=== PATIENT | male | born 1995 | race Caucasian/White ===

== ENCOUNTER 2023-08-17 04:52 | Emergency (ER) | payer OTHER, SELFPAY ==
--- NOTE | 2023-08-17 05:04 | DI.RAD.S_ITS ---
PROCEDURE: XR CHEST 1V INDICATIONS: L CHEST PAIN TECHNIQUE: One view of the chest was acquired. COMPARISON: None. FINDINGS: Surgical changes and devices: None. Lungs and pleura: Lung volumes are slightly low, but lungs are clear. No pleural effusions or pneumothorax. Mediastinum: Mediastinal contours appear normal. Heart size is normal. Bones and chest wall: No suspicious bony lesions. Overlying soft tissues appear unremarkable. IMPRESSION: No acute cardiopulmonary process. I agree with the preliminary report. Dictated by: Yola Olivas M.D. on 08/17/2023 at 8:41 Approved by: Yola Olivas M.D. on 08/17/2023 at 8:41
[2023-08-17 05:06] VITALS: BP 159/86; PULSE 84; RESP 16; TEMP 36.9; O2SAT 98; BMI 48.6
[2023-08-17 05:08] VITALS: PULSE 84; O2SAT 95
--- NOTE | 2023-08-17 05:11 | ED.CHESTPAIN ---
HPI - Chest Pain General Chief Complaint: Chest Pain Stated Complaint: chest pain arm pain left arm and fingers numb Time Seen by Provider: 08/17/23 04:53 Source: patient Mode of arrival: Ambulatory Limitations: no limitations History of Present Illness HPI narrative: 28-year-old male with history of hypertension presents by private vehicle from home for 3-4 days of left-sided, intermittent chest pain. Pain starts in his left arm and goes into his chest. Patient can not identify what makes the pain come or go. No medications taken at home prior to arrival. Patient states that he woke up this morning with chest and arm pain with tingling and numb sensation in his left ring and pinky fingers and decided to present for evaluation. Patient states that his dad has a history of heart problems, but is also an alcoholic and he does not have much contact with him. No other family members have heart disease. Patient denies history of diabetes or high cholesterol. States that he was home blood pressure monitor because [facility] told [facility] that he was on the ?upper limits of normal?, but is not currently on medications for blood pressure. Related Data Home Medications Medication Instructions Recorded Confirmed sertraline 100 mg tablet 100 mg PO DAILY 08/17/23 08/17/23 Review of Systems Review of Systems Narrative: See HPI Patient History Social History Smoking Status: Never smoker Smoking Status: Never smoker Substance Use Type: does not use Exam Initial Vital Signs Initial Vital Signs: Vital Signs Temperature 98.4 F 08/17/23 05:06 Pulse Rate 84 08/17/23 05:06 Respiratory Rate 16 08/17/23 05:06 Blood Pressure 159/86 H 08/17/23 05:06 Pulse Oximetry 98 08/17/23 05:06 Oxygen Delivery Method Room Air 08/17/23 05:06 Const: Awake, alert, no acute distress, nontoxic appearing Cardiac: regular rate, regular rhythm RESP: unlabored, clear bilaterally, no wheezing GI: Soft, nontender, nondistended, no rebound, no guarding MSK: Atraumatic, full range of motion, pulses equal Skin: Warm, Dry, intact, no rashes Neuro: AO x3, CN II-XII grossly intact, moves all extremities Course Orders Ordered: ED Orders 08/17/23 05:04 Chest [XR chest 1V] Stat EKG-12 Lead Stat 08/17/23 05:05 CBC Auto Diff [Complete Blood Count AUTO DIFF] Stat CMP [Comprehensive Metabolic Panel] Stat Troponin & CK Cardiac Panel Stat Vital Signs Vital signs: Vital Signs - 8 hr 08/17/23 05:06 08/17/23 05:08 08/17/23 05:30 Temperature 98.4 F Pulse Rate 84 84 Respiratory Rate 16 Blood Pressure 159/86 H 138/82 Pulse Oximetry 98 95 Oxygen Delivery Method Room Air 08/17/23 05:30 Temperature Pulse Rate 83 Respiratory Rate 15 Blood Pressure Pulse Oximetry 93 Oxygen Delivery Method MDM - Chest Pain Differential Diagnosis Differential diagnosis: Likely fracture of rib, pneumothorax and stable angina Lab Data 08/17/23 05:15 08/17/23 05:15 Labs: Lab Results 08/17/23 Range/Units 05:15 WBC 8.9 (4.5-11.0) X10^3/uL RBC 5.15 (4.5-5.9) X10^6/uL Hgb 14.6 (13.5-17.5) g/dL Hct 43.5 (41-53) % MCV 84.5 (80-100) fL MCH 28.4 (26-34) PG MCHC 33.6 (30-36) % RDW 13.7 (11.6-14.8) % Plt Count 284 (150-400) X10^3/uL Neut % (Auto) 48.8 L (50-75) % Lymph % (Auto) 41.7 H (25-40) % [place] % (Auto) 5.6 (3-14) % Eos % (Auto) 3.0 (2-4) % Baso % (Auto) 0.9 (0-2) % Neut # (Auto) 4400 (6545-2553) /uL Lymph # (Auto) 3700 (5549-2564) /uL [place] # (Auto) 500 (0-900) /uL Eos # (Auto) 300 (0-450) /uL Baso # (Auto) 100 (0-100) /uL Sodium 139 (137-145) mmol/L Potassium 4.1 (3.4-5.1) mmol/L Chloride 105 (98-107) mmol/L Carbon Dioxide 27 (22-32) mmol/L BUN 15 (9-20) mg/dL Creatinine 0.87 (0.66-1.25) mg/dL Estimated GFR > 60 (>60) mL/min BUN/Creatinine Ratio 17.2 (6-22) Glucose 121 H (70-100) mg/dL Calcium 9.3 (8.4-10.2) mg/dL Total Bilirubin 0.6 (0.2-1.3) mg/dL AST 31 (17-59) IU/L ALT 51 H (<50) IU/L Alkaline Phosphatase 72 (38-126) U/L Total Creatine Kinase 62 (55-170) U/L Troponin I < 0.012 (0.01-0.034) ng/mL Total Protein 7.8 (6.3-8.2) g/dL Albumin 4.7 (3.5-5.0) g/dL Globulin 3.1 (1.7-4.1) g/dL Albumin/Globulin Ratio 1.5 (1.0-2.8) ECG Data Interpretation: Normal sinus rhythm at 81 beats per minute. Normal ID, no ST T wave changes, no STEMI MDM Narrative Medical decision making narrative: Nontoxic patient presenting for chest pain. Heart score 1 based on risk factors of obesity and hypertension, however history and exam with low suspicion for ACS. Labs and x-ray imaging ordered. Laboratory work unremarkable. Troponin undetectable, chest x-ray shows no acute process. Patient reassessed, comfortable in ED bed. Informed of lab and imaging findings. Reassured by normal lab and x-ray imaging. Recommended close PCP follow up. Offered patient low-dose blood pressure medication such as amlodipine if he continues to notice blood pressure elevation at home. Patient declined, stating that he would [facility] if he noticed elevated blood pressures at home. ED return precautions discussed at bedside. Patient expressed understanding of the plan and is in agreement at this time. All questions answered at the time of discharge. Discharge Plan Departure Patient Disposition: Home Clinical Impression: Chest pain Instructions: DI for Chest Pain Activity Restrictions/Additional Instructions: Your blood work, EKG, and chest x-ray were reassuring. I do not know the exact cause of your chest pains but your workup is inconsistent with a heart attack. Please follow up with your primary care physician. If you continued to notice chest pains I would recommend talking to your primary about a referral to [facility] through the [facility]. Prescriptions: No Action sertraline 100 mg tablet 100 mg PO DAILY Stand Alone Forms: Patient Portal/API
--- NOTE | 2023-08-17 05:21 | PC.NURSE ---
Pt states that he has had recurrent symptoms over the last few days. No treatment and not seen by PCP in the past. Pt states today around 4 am woke up suddenly with left sided chest pain lasting about 10 minutes, then after felt some numbness and tingling in his left fingers. During exam today pt states that he is still having some tingling in his left fingers.
[2023-08-17 05:22] LABS: Add Manual Diff / Slide Review NO; Basophils Absolute Auto 100 /uL (0-100); Basophils Percent Auto 0.9 % (0-2); Eosinophils Absolute Auto 300 /uL (0-450); Hematocrit 43.5 % (41-53); Hemoglobin 14.6 g/dL (13.5-17.5); Lymphocytes Absolute Auto 3700 /uL (1100-4500); Lymphocytes Percent Auto 41.7 % (25-40); Mean Corpuscular HGB Conc 33.6 % (30-36); Mean Corpuscular Hemoglobin 28.4 PG (26-34); Mean Corpuscular Volume 84.5 fL (80-100); Monocytes Absolute Auto 500 /uL (0-900); Monocytes Percent Auto 5.6 % (3-14); Neutrophils Absolute Auto 4400 /uL (1500-7000); Neutrophils Percent Auto 48.8 % (50-75); Platelet Count 284 X10^3/uL (150-400); Red Blood Cell Count 5.15 X10^6/uL (4.5-5.9); Red Cell Distribution Width 13.7 % (11.6-14.8); White Blood Cell Count 8.9 X10^3/uL (4.5-11.0)
[2023-08-17 05:30] VITALS: BP 138/82; PULSE 83; RESP 15; O2SAT 93
[2023-08-17 05:41] LABS: Alanine Aminotransferase 51 IU/L (<50); Albumin 4.7 g/dL (3.5-5.0); Albumin Globulin Ratio 1.5 (1.0-2.8); Alkaline Phosphatase 72 U/L (38-126); Aspartate Aminotransferase 31 IU/L (17-59); BUN Creatinine Ratio 17.2 (6-22); Bilirubin Total 0.6 mg/dL (0.2-1.3); Blood Urea Nitrogen 15 mg/dL (9-20); Calcium 9.3 mg/dL (8.4-10.2); Carbon Dioxide 27 mmol/L (22-32); Chloride 105 mmol/L (98-107); Creatine Kinase 62 U/L (55-170); Estimated Glomerular Filt Rate > 60 mL/min (>60); Globulin 3.1 g/dL (1.7-4.1); Glucose 121 mg/dL (70-100); HEMOLYSIS < 15 (0-50); Potassium 4.1 mmol/L (3.4-5.1); Sodium 139 mmol/L (137-145); Total Protein 7.8 g/dL (6.3-8.2)
[2023-08-17 05:53] LABS: Troponin I < 0.012 ng/mL (0.01-0.034)
[2023-08-17 06:00] VITALS: BP 130/82; PULSE 75; RESP 17; O2SAT 95
[2023-08-17 06:33] VITALS: BP 130/82; PULSE 75; RESP 16; O2SAT 98
== END 2023-08-17 06:36 | disposition home or self-care (01) ==
PROVIDERS: Emergency Provider Emergency Medicine; Family Provider Pediatrics
DX: R07.9 Chest pain, unspecified (principal)
CPT/HCPCS: 71045; 80053; 82550; 84484; 85025; 93005; 99281; 99284

== ENCOUNTER 2024-08-14 15:15 | Emergency (ER) | payer OTHER, SELFPAY ==
[2024-08-14 15:18] VITALS: BP 157/87; PULSE 92; RESP 18; TEMP 36.4; O2SAT 97; BMI 44.8
--- NOTE | 2024-08-14 15:51 | DI.RAD.S_ITS ---
PROCEDURE: XR HAND RT MIN 3V INDICATIONS: increased pain TECHNIQUE: 3 views of the hand(s) acquired. COMPARISON: None. FINDINGS: Bones: No fractures or dislocations. Carpal bones are normally aligned. No suspicious bony lesions. Soft tissues: No suspicious soft tissue calcifications. IMPRESSION: No acute osseous abnormality. If pain persists with conservative management, consider repeat x-ray in 10-14 days or cross-sectional imaging. Dictated by: Zach Quintana M.D. on 08/14/2024 at 16:38 Approved by: Zach Quintana M.D. on 08/14/2024 at 16:39
--- NOTE | 2024-08-14 18:11 | ED.EXTPRO ---
HPI - Extremity Problem <Shantell Rust PA-C - Last Filed: 08/14/24 19:25> General Chief complaint: Extremity Problem,Nontraumatic Stated complaint: numbness in fingers, pain in knuckles rt hand Time Seen by Provider: 08/14/24 16:17 Source: patient Mode of arrival: Ambulatory History of Present Illness HPI Narrative: Mr. Martinez is a very pleasant 29-year-old male with a past medical history prediabetes who presents to the emergency department for right hand pain and numbness/tingling x3 days. Pt denies traumatic injury. He works at [employer] and is right-hand dominant, uses right hand majority of the day. Noticed the pain in the middle of his right hand and knuckles starting throughout the day about 3 days ago and now he is having some intermittent numbness/tingling in his 1st through 4th digits but primarily digits 2 3 and 4. At this time he is not experiencing any of the symptoms except for mild pressure-like pain in the middle of the right hand. Because Of his history of prediabetes, he is worried about neuropathy. He denies any numbness tingling of his feet, left hand, wrist sore arms. No neck pain. No fevers chills nausea vomiting or other symptoms. He did take 1 dose of Aleve earlier today without relief. Related Data Home Medications Medication Instructions Recorded Confirmed sertraline 100 mg tablet 100 mg PO DAILY 08/17/23 08/17/23 Allergies Allergy/AdvReac Type Severity Reaction Status Date / Time No Known Drug Allergies Allergy Verified 08/14/24 15:18 Review of Systems <Shantell Rust PA-C - Last Filed: 08/14/24 19:25> Review of Systems ROS Unobtainable: All systems reviewed & are unremarkable except as noted in HPI and below Patient History <Shantell Rust PA-C - Last Filed: 08/14/24 19:25> Social History Smoking Status: Never smoker Smoking Status: Never smoker Exam <Shantell Rust PA-C - Last Filed: 08/14/24 19:25> Narrative Exam Narrative: GENERAL: 29 year old patient appears stated age. Well-developed patient, in no acute distress. HEAD: Atraumatic. Normocephalic. NECK: Trachea midline. Cervical ROM intact. CARDIOVASCULAR: Regular rate and rhythm. RESPIRATORY: ?Nonlabored respirations. ?Speaking in clear, full sentences. ? EXTREMITIES: Strong radial pulses bilaterally, sensation and strength intact in the distribution of the median, ulnar, radial nerves bilaterally. Patient has no focal bony tenderness of the right hand, no skin changes swelling or deformities. Negative Phalen's and Tinel's tests bilaterally. NEURO: AOx3. ?Clear speech. ?Moves all 4 extremities appropriately. SKIN: No rash or erythema of visible areas Initial Vital Signs Initial Vital Signs: Vital Signs Temperature 97.6 F 08/14/24 15:18 Pulse Rate 92 H 08/14/24 15:18 Respiratory Rate 18 08/14/24 15:18 Blood Pressure 157/87 H 08/14/24 15:18 Pulse Oximetry 97 08/14/24 15:18 Oxygen Delivery Method Room Air 08/14/24 15:18 <Tate Serra MD - Last Filed: 08/20/24 08:14> Initial Vital Signs Initial Vital Signs: Vital Signs Temperature 97.6 F 08/14/24 15:18 Pulse Rate 92 H 08/14/24 15:18 Respiratory Rate 18 08/14/24 15:18 Blood Pressure 157/87 H 08/14/24 15:18 Pulse Oximetry 97 08/14/24 15:18 Oxygen Delivery Method Room Air 08/14/24 15:18 Course <Shantell Rust PA-C - Last Filed: 08/14/24 19:25> Orders Ordered: Discontinued Medications Ketorolac Tromethamine (Ketorolac 30 Mg/Ml Vial) 30 mg IM NOW ONE Stop: 08/14/24 18:27 Last Admin: 08/14/24 18:35 Dose: 30 mg Documented By: JOANNA Vital Signs Vital signs: Vital Signs - 8 hr 08/14/24 15:18 08/14/24 18:43 Temperature 97.6 F Pulse Rate 92 H 85 Respiratory Rate 18 17 Blood Pressure 157/87 H 145/81 H Pulse Oximetry 97 99 Oxygen Delivery Method Room Air Room Air <Tate Serra MD - Last Filed: 08/20/24 08:14> Orders Ordered: Discontinued Medications Ketorolac Tromethamine (Ketorolac 30 Mg/Ml Vial) 30 mg IM NOW ONE Stop: 08/14/24 18:27 Last Admin: 08/14/24 18:35 Dose: 30 mg Documented By: JOANNA Vital Signs Vital signs: Vital Signs - 8 hr 08/14/24 15:18 08/14/24 18:43 Temperature 97.6 F Pulse Rate 92 H 85 Respiratory Rate 18 17 Blood Pressure 157/87 H 145/81 H Pulse Oximetry 97 99 Oxygen Delivery Method Room Air Room Air [facility] - Extremity (Nontraumatic) <Shantell Rust PA-C - Last Filed: 08/14/24 19:25> Imaging Data Right Hand X-Ray: Radiologist's Impression: PROCEDURE: XR HAND RT MIN 3V INDICATIONS: increased pain TECHNIQUE: 3 views of the hand(s) acquired. COMPARISON: None. FINDINGS: Bones: No fractures or dislocations. Carpal bones are normally aligned. No suspicious bony lesions. Soft tissues: No suspicious soft tissue calcifications. IMPRESSION: No acute osseous abnormality. If pain persists with conservative management, consider repeat x-ray in 10-14 days or cross-sectional imaging. [facility] Narrative Medical decision making narrative: 29-year-old male with a past medical history prediabetes who presents to the emergency department for right hand pain and numbness/tingling x3 days. Differential diagnosis includes but is not limited to right hand overuse injury, carpal tunnel syndrome, sprain, strain, fracture, etc. On exam patient is in no acute distress, nontoxic appearing, vital signs appropriate, right-hand neurovascularly intact. Baseline right hand x-ray obtained revealing no bony abnormalities. I do suspect that this time of the patient's symptoms are due to an overuse injury, potentially early development of an intermittent carpal tunnel inflammation. His right hand was placed into an David wrap for support, and he was given a dose of Toradol in the emergency department. I recommended a trial of anti-inflammatories, rice therapy over the next week and follow up with PCP. Discussed strict ED return precautions. Patient verbalized understanding all information is agreeable to the plan, he is stable for discharge home. Discharge Plan Departure Patient Disposition: Home Clinical Impression: Hand pain, right, Paresthesias in right hand Instructions: DI for Hand Pain Activity Restrictions/Additional Instructions: Dear Mr. Chamberlainsarai, Thank you for coming to the emergency department. Today we obtained an x-ray of your right hand which reveal no acute bony abnormalities. I am concerned that your symptoms are likely related to musculoskeletal strain of the right hand versus carpal tunnel. Please use the provided David wrap, rest of the hand, follow the advice below, and follow up with the primary care doctor for routine lab work and further evaluation Please use RICE therapy for your pain in addition to ibuprofen/acetaminophen. Rest the painful area. Ice the area of pain/swelling for at least 15 minutes, 4x a day. Compress the area of swelling using a brace, wrap, or splint if applied. Elevate the painful or swollen extremity by supporting it above the level of the heart with pillows when sitting or laying. Please take Ibuprofen (Motrin/Advil) or Acetaminophen (Tylenol) for pain. These are available over the counter. You may take Ibuprofen 600 mg every 8 hours with food for pain. You may also take Acetaminophen 650 mg every 4-6 hours for pain. Do not exceed 3000 mg of Tylenol a day as this can cause liver damage. Do not drink alcohol with either of these medications. Please follow up with your primary care doctor within the next 2-3 days for ER follow-up. (If you do not have a PCP you can call [phone]. ?to schedule an appointment with an [facility] Primary Care Provider) IF YOU DEVELOP ANY NEW OR WORSENING SYMPTOMS, RETURN TO THE ER! Please read the attached instructions, they highlight more specific treatments and interventions for you at home. Thank you for letting me participate in your care, Shantell Rust PA-C Prescriptions: No Action sertraline 100 mg tablet 100 mg PO DAILY Referrals: Miscellaneous,[facility] [Primary Care Provider] - Stand Alone Forms: Patient Portal/API/Survey ED Sign-out <Tate Serra MD - Last Filed: 08/20/24 08:14> Cosign ED Attending Cosfidelature Attestation: I was immediately available in the department for consultation. ?This documentation has been reviewed and I agree with assessment and plan. Supervised by Tate Serra MD
[2024-08-14] MEDS: KETOROLAC 30 MG/ML VIAL IM (18:35)
[2024-08-14 18:43] VITALS: BP 145/81; PULSE 85; RESP 17; O2SAT 99
== END 2024-08-14 18:40 | disposition home or self-care (01) ==
PROVIDERS: Emergency Provider Physician Assistant; Family Provider Pediatrics
DX: M79.641 Pain in right hand (principal); R20.2 Paresthesia of skin
CPT/HCPCS: 73130; 96372; 99283; J1885